=== PATIENT | male | born 1970 | race Caucasian/White ===

== ENCOUNTER 2020-10-31 06:14 | Day surgery (SDC) | payer OTHER ==
[~2020-10-31] VITALS: Ht 182.9 cm; Wt 86.2 kg
[~2020-10-31 06:14] MED LIST: TIZA4TAB9 PO
[2020-10-31] MEDS ORDERED: ceFAZolin 1GM/50ML 100 ML IV ONE (07:00)
[2020-10-31] MEDS ORDERED: fentaNYL CITRATE 5 ML ONE (07:26)
[2020-10-31] MEDS ORDERED: MIDAZOLAM HCL 2MG/2ML 2ml VIAL (1mg/ml) ONE (07:26)
[2020-10-31] MEDS ORDERED: ROCURONIUM 10MG/ML 10ML VIAL IV ONE (07:26)
[2020-10-31] MEDS ORDERED: TRANEXAMIC ACID 20 ML ONE (07:31)
[2020-10-31] MEDS ORDERED: BUPIVACAINE 0.25% INJ 50ML VIAL ONE (07:31)
[2020-10-31] MEDS ORDERED: MORPHINE SULF PF 2 MG/2 ML SYRG ONE (07:34)
[2020-10-31] MEDS ORDERED: KETOROLAC TROMETH 30 MG/ML 1ML VIAL ONE (07:35)
[2020-10-31] MEDS ORDERED: LIDOCAINE 2% (LOCAL ANESTH.) PF 5ml SDV ONE (07:41)
[2020-10-31] MEDS ORDERED: PROPOFOL 10 MG/ML 20 ML IV ONE (07:41)
[2020-10-31] MEDS ORDERED: ONDANSETRON HCL 4 MG/2 ML VIAL ONE (07:41)
[2020-10-31] MEDS ORDERED: HYDROmorphone HCL 2 MG/ML VL ONE (08:31)
[2020-10-31] MEDS ORDERED: GLYCOPYRROLATE 0.2 MG/ML 1ML VIAL ONE (10:23)
[2020-10-31] MEDS ORDERED: HYDROmorphone HCL 2 MG/ML VL IV PRN ×2 (11:00)
[2020-10-31] MEDS ORDERED: ONDANSETRON HCL 4 MG/2 ML VIAL IV PRN (11:00)
[2020-10-31] MEDS ORDERED: BUPIVACAINE W/ EPINEPH 0.5% MPF 30ML VIAL IJ ONE (11:54)
[2020-10-31] MEDS ORDERED: LIDOCAINE 1% (LOCAL ANESTH.) PF 5ml SDV ONE (11:55)
[2020-10-31 12:30] VITALS: BP 142/72
[2020-10-31] MEDS ORDERED: ONDANSETRON HCL 4 MG/2 ML VIAL IV ONE (12:40)
== END 2020-10-31 12:50 | disposition home or self-care (01) ==
LOC: SUR 06:14
PROVIDERS: ATTEND Orthopaedic Surgery Sports Medicine
DX: M25.511 Pain in right shoulder (principal); M25.311 Other instability, right shoulder; K21.9 Gastro-esophageal reflux disease without esophagitis; K44.9 Diaphragmatic hernia without obstruction or gangrene; Z20.822 Contact with and (suspected) exposure to COVID-19; Z98.890 Other specified postprocedural states
CPT/HCPCS: 23455; 23460; 23462; 73030; 86850; 86900; 86901; C1713; J0690; J1170; J1885; J2001; J2250; J2270; J2405; J2704; J3010; J3490; U0003; 76000